=== PATIENT | male | born 1940 | race Hispanic/Latino ===

== ENCOUNTER → 2024-03-17 | Outpatient (CLI) | payer MEDICARE ==
[~2024-03-17] MED LIST: AMLO-258 PO; ASPI-1197 PO; BLOOD PRESSURE PO; HYDR12.530 PO; LOSA100T59 PO
[2024-03-17] MEDS: REGADENOSON 0.4 MG/5 ML PF SYG IVP ONE (15:48)
--- NOTE | 2024-03-18 12:05 | HMCSR ---
APPROVED REPORT Height: 5 ft 3in Weight: 187 lbs TEST INDICATIONS CHF The imaging protocol used to acquire images was Rest Tc-99m/stress Tc-99m 1 day Consent: The procedure was explained and understood by the patient. Informerd consent was witnessed Sai Tolbert RN First, low dose rest was performed then high dose stress. RESTING DATA: The resting ekg shows: LBBB Rest SPECT myocardial perfusion imaging was performed in supine position 62 minutes following the int ravenous injection of 10.4 mCi of Tc-99 Sestamibi. Time of rest injection: 09:18: Date: 03/17/2024 Time of rest imagin:20: Date: 03/17/2024 PHARMACOLOGIC STRESS: Pharmacologic stress test was performed by injecting regadenoson 0.4 mg IV push followed by the intra venous injection of 32 mCi of Tc-99 Sestamibi. Time of stress injection: 10:50: Date: 03/17/2024 Time of stress imagin:09: Date: 03/17/2024 Heart Rate at time of stress injection: 68 bpm. Gated Stress SPECT was performed 79 minutes after stress injection. The images were gated to evaluate regional wall motion and calculate left ventricular ejection fracti on. STRESS DETAILS Reason for Termination: Infusion complete Stress Symptoms: No chest pain or symptoms Max HR Achieved: 78 bpm % of APMHR Achieved: 57 Max Blood Pressure: 141/75 mmHg Stress ECG: LBBB Study quality was fair. Lung uptake was Normal. Artifact: No artifact LEFT VENTRICLE The left ventricular ejection fraction was calculated to be 25%.TID = 0.76. IMPRESSION Abnormal pharmacologic nuclear stress test. Conclusion Abnormal [id number] stress test with an LVEF of 25% and a TID of 0.76 There are moderate sized anterior and inferior perfusion defects suggestive of ischemia.
== END | disposition home or self-care (01) ==
LOC: SHCH 08:52
PROVIDERS: ATTEND Student in an Organized Health Care Education/Training Program
DX: I44.7 Left bundle-branch block, unspecified (principal); I50.9 Heart failure, unspecified; Z79.899 Other long term (current) drug therapy
CPT/HCPCS: 78452; 93017; J2785; A9500 ×2